=== PATIENT | female | born 1940 | race Caucasian/White ===

== ENCOUNTER 2016-08-20 09:24 | Inpatient (IN) | payer MEDICARE ==
[2016-08-20] VITALS (25 sets, daily range): BP systolic 55–129; BP diastolic 22–77
[~2016-08-20] VITALS: Ht 142.2 cm; Wt 83.9 kg
[~2016-08-20 09:24] MED LIST: ALEN70TA3 PO; ASPI-1159 PO; ATOR20TA65 PO; ATOR40TA70 PO; CHOL20004 PO; CLOP75TA33 PO; COR12 PO; ESCI10TA54 PO; HYDR-3927 PO; HYDR-523 PO; LOSA100T14 PO; OMEP20TA15 PO
[2016-08-20] MEDS ORDERED: SODIUM CHLORIDE 0.9% 1,000 ML IV ONE ×4 (09:40→14:19)
[2016-08-20] MEDS ORDERED: ONDANSETRON HCL 4MG/2ML VIAL IV STA (09:55)
[2016-08-20] MEDS ORDERED: MORPHINE SULFATE 4 MG/ML CPJ (NOT FOR IM USE) IV STA (09:55)
[2016-08-20] MEDS ORDERED: ASPIRIN 325MG TABLET PO ONE (10:00)
[2016-08-20 10:14] LABS: HEMATOCRIT. 39.3 % (36.0-48.0); HEMOGLOBIN. 13.1 g/dL (12.0-16.0); MEAN CORPUSCULAR HEMOGLOBIN 29.4 pg (28.0-32.0); MEAN CORPUSCULAR VOLUME 88.5 fL (81.0-99.0); MEAN PLATELET VOLUME 10.9 fl (7.4-10.4); PLATELET 108 x1000/uL (130-400); RED BLOOD CELL COUNT 4.44 mill/uL (4.2-5.4); RED CELL DISTRIBUTION WIDTH 14.5 % (11.6-14.6)
[2016-08-20 10:20] LABS: D-DIMER 3.49 mg/L FEU (<0.50); PROTHROMBIN TIME 10.7 sec
[2016-08-20 10:24] LABS: CARBON DIOXIDE 30 mEq/L (21-32); CHLORIDE 105 mEq/L (98-107); ETHANOL BLOOD < 10 mg/dL
[2016-08-20 10:33] LABS: PLATELET ESTIMATE SLIGHTLY DECREASED
[2016-08-20] MEDS ORDERED: LIDOCAINE HCL 2% JELLY 5ML MM ONE (11:15)
[2016-08-20 11:39] LABS: CLARITY URINE CLOUDY (CLEAR); COLOR URINE YELLOW (YELLOW); GLUCOSE URINE NEGATIVE (NEGATIVE); KETONES URINE TRACE (NEGATIVE); LEUKOCYTE ESTERASE URINE 3+ (NEGATIVE); NITRITE URINE POSITIVE (NEGATIVE); OCCULT BLOOD URINE 3+ (NEGATIVE); PH URINE 5.5 (4.5-8.0); PROTEIN URINE 2+ (NEGATIVE); SPECIFIC GRAVITY URINE 1.033 (1.005-1.030)
[2016-08-20 12:18] LABS: *AMPHETAMINES SCREEN URINE NEGATIVE (NEGATIVE); *BARBITURATES SCREEN URINE NEGATIVE (NEGATIVE); *BENZODIAZEPINES SCREEN URINE NEGATIVE (NEGATIVE); *COCAINE SCREEN URINE NEGATIVE (NEGATIVE); CANNABINOID URINE SCREEN NEGATIVE (NEGATIVE); METHADONE URINE SCREEN NEGATIVE (NEGATIVE); OPIATES URINE SCREEN NEGATIVE (NEGATIVE); PHENCYCLIDINE URINE SCREEN NEGATIVE (NEGATIVE)
[2016-08-20] MEDS ORDERED: PIPERACILLIN SODIUM/TAZOBACTAM 4.5 G in DEXT 5% WATER 100 ML IV SCH (12:30)
[2016-08-20] MEDS ORDERED: CEFTRIAXONE 2 G PREMIX 50 ML IV ONE (12:30)
[2016-08-20] MEDS ORDERED: VANCOMYCIN 1,250 MG in DEXT 5% WATER 250 ML IV SCH (12:30)
[2016-08-20] MEDS ORDERED: SODIUM CHLORIDE 0.9% 1,000 ML IV SCH (12:38)
[2016-08-20] MEDS ORDERED: NA PHOS,M-B/NA PHOS,DI-BA ENEMA 118ML PR PRN (13:15)
[2016-08-20] MEDS ORDERED: ONDANSETRON HCL 4MG/2ML VIAL IV PRN (13:15)
[2016-08-20] MEDS ORDERED: MAGNESIUM/ALUMINUM HYDROXIDE/SIMETHICONE 30ML UDC PO PRN (13:15)
[2016-08-20] MEDS ORDERED: HYDROMORPHONE HCL/PF 2MG/ML CPJ IV PRN (13:15)
[2016-08-20] MEDS ORDERED: CLONIDINE 0.1MG TABLET PO PRN (13:15)
[2016-08-20] MEDS ORDERED: DOCUSATE SODIUM 100MG CAPSULE PO PRN (13:15)
[2016-08-20] MEDS: ACETAMINOPHEN 325MG TABLET PO PRN (18:14)
[2016-08-20] MEDS ORDERED: LEVOFLOXACIN 500MG PREMIX 100 ML IV SCH (18:30)
[2016-08-20] MEDS ORDERED: DEXTROSE 50% WATER 50ML SYRINGE IV PRN (18:30)
[2016-08-20] MEDS: ENOXAPARIN 40MG/0.4ML SYR SUBCUT SCH (18:53)
[2016-08-20] MEDS ORDERED: SODIUM CHLORIDE 0.45% 1,000 ML IV SCH (19:00)
[2016-08-20] MEDS: BLOOD SUGAR DIAGNOSTIC STRIP TEST SCH (20:59)
[2016-08-20] MEDS: INSULIN LISPRO 100 UNITS/ML SUBCUT SCH (20:59)
[2016-08-20 21:07] LABS: CHLORIDE 111 mEq/L (98-107)
[2016-08-20 21:10] LABS: CARBON DIOXIDE 22 mEq/L (21-32)
[2016-08-20] MEDS: NOREPINEPHRINE 4 MG in DEXT 5% WATER 246 ML IV PRN (23:57)
[2016-08-21] VITALS (101 sets, daily range): BP systolic 55–158; BP diastolic 25–86
[2016-08-21] MEDS: IPRATROPIUM/ALBUTEROL 0.5-3(2.5)MG/3ML NEB INH PRN ×2 (04:34→13:32)
[2016-08-21] MEDS: HYDROCODONE/ACETAMINOPHEN 5/325MG TABLET PO PRN ×3 (04:43→20:37)
[2016-08-21] MEDS: BLOOD SUGAR DIAGNOSTIC STRIP TEST SCH ×4 (06:30→20:49)
[2016-08-21] MEDS: INSULIN LISPRO 100 UNITS/ML SUBCUT SCH ×4 (06:56→21:17)
[2016-08-21 07:36] LABS: BASOPHILS % 0.4 % (0.0-2.0); EOSINOPHILS % 0.4 % (0.0-5.0); HEMATOCRIT. 34.2 % (36.0-48.0); HEMOGLOBIN. 11.2 g/dL (12.0-16.0); LYMPHOCYTES % 12.3 % (20.0-50.0); MEAN CORPUSCULAR HEMOGLOBIN 28.7 pg (28.0-32.0); MEAN CORPUSCULAR VOLUME 88.1 fL (81.0-99.0); MEAN PLATELET VOLUME 11.2 fl (7.4-10.4); NEUTROPHILS % 80.9 % (40.0-76.0); PLATELET 115 x1000/uL (130-400); RED BLOOD CELL COUNT 3.88 mill/uL (4.2-5.4); RED CELL DISTRIBUTION WIDTH 14.8 % (11.6-14.6)
[2016-08-21 07:59] LABS: CARBON DIOXIDE 22 mEq/L (21-32); CHLORIDE 110 mEq/L (98-107); HDL CHOLESTEROL 46 mg/dL (40-59); LDL CHOLESTEROL 58 mg/dL (5-100); T4 FREE 1.15 ng/dL (0.76-1.46)
[2016-08-21] MEDS: ACETAMINOPHEN 325MG TABLET PO PRN (08:03)
[2016-08-21] MEDS: SODIUM CHLORIDE 0.45% 1,000 ML IV SCH ×2 (08:24→21:46)
[2016-08-21] MEDS ORDERED: OMEPRAZOLE 20MG CAPSULE EXTENDED RELEASE PO SCH (11:15)
[2016-08-21] MEDS: NOREPINEPHRINE 4 MG in DEXT 5% WATER 246 ML IV PRN (12:06)
[2016-08-21] MEDS: CLOPIDOGREL 75MG TABLET PO SCH (12:56)
[2016-08-21 16:03] LABS: CREATINE KINASE 236 IU/L (26-192); CREATINE KINASE MB FRACTION 3.3 ng/mL (0.5-3.6); TROPONIN I < 0.02 ng/mL (0.00-0.04)
[2016-08-21] MEDS: LEVOFLOXACIN 250MG PREMIX 50 ML IV SCH (17:56)
[2016-08-21] MEDS: ENOXAPARIN 40MG/0.4ML SYR SUBCUT SCH (18:06)
[2016-08-22] VITALS (68 sets, daily range): BP systolic 86–173; BP diastolic 41–106
[2016-08-22 00:06] LABS: CREATINE KINASE 244 IU/L (26-192); TROPONIN I < 0.02 ng/mL (0.00-0.04)
[2016-08-22] MEDS: IPRATROPIUM/ALBUTEROL 0.5-3(2.5)MG/3ML NEB INH PRN ×3 (00:26→10:45)
[2016-08-22] MEDS: HYDROCODONE/ACETAMINOPHEN 5/325MG TABLET PO PRN ×2 (04:00→07:14)
[2016-08-22] MEDS: GUAIFENESIN 200MG/10ML SUGAR FREE UDC PO PRN (04:00)
[2016-08-22 04:51] LABS: BASOPHILS % 0.5 % (0.0-2.0); HEMATOCRIT. 33.2 % (36.0-48.0); HEMOGLOBIN. 11.2 g/dL (12.0-16.0); LYMPHOCYTES % 14.7 % (20.0-50.0); MEAN CORPUSCULAR HEMOGLOBIN 29.7 pg (28.0-32.0); MEAN CORPUSCULAR VOLUME 88.4 fL (81.0-99.0); MEAN PLATELET VOLUME 10.7 fl (7.4-10.4); NEUTROPHILS % 71.8 % (40.0-76.0); PLATELET 80 x1000/uL (130-400); RED BLOOD CELL COUNT 3.76 mill/uL (4.2-5.4)
[2016-08-22 05:11] LABS: CARBON DIOXIDE 21 mEq/L (21-32); CHLORIDE 109 mEq/L (98-107); CREATINE KINASE 234 IU/L (26-192); CREATINE KINASE MB FRACTION 2.8 ng/mL (0.5-3.6); TROPONIN I < 0.02 ng/mL (0.00-0.04)
[2016-08-22] MEDS: BLOOD SUGAR DIAGNOSTIC STRIP TEST SCH ×4 (05:53→20:38)
[2016-08-22] MEDS: SODIUM CHLORIDE 0.45% 1,000 ML IV SCH ×2 (06:07→07:50)
[2016-08-22] MEDS: OMEPRAZOLE 20MG CAPSULE EXTENDED RELEASE PO SCH (06:07)
[2016-08-22] MEDS: INSULIN LISPRO 100 UNITS/ML SUBCUT SCH ×4 (06:08→20:37)
[2016-08-22] MEDS: CLOPIDOGREL 75MG TABLET PO SCH (08:13)
[2016-08-22] MEDS ORDERED: PHENAZOPYRIDINE HCL 200MG TABLET PO SCH (11:00)
[2016-08-22 11:23] LABS: BG BASE EXCESS -6.9 mmol/L (-2.0-2.0); BG CARBOXYHEMOGLOBIN 0.8 % (0.5-1.5); BG DEOXYHEMOGLOBIN 3.4 % (0.0-5.0); BG FRACTION INSPIRED OXYGEN 32; BG HCO3 ACT 19.2 mmol/L (22.0-26.0); BG METHEMOGLOBIN 0.3 % (0.0-1.5); BG OXYGEN SATURATION 96.6 % (92.0-98.5); BG OXYHEMOGLOBIN 95.5 % (94.0-97.0); BG PH 7.289 (7.350-7.450); BG PO2 93.2 mmHg (75.0-100.0); BG SAMPLE SITE RIGHT RADIAL; BG TOTAL HEMOGLOBIN 12.7 g/dL (12.0-18.0); BG VENT MODE NASAL CANNULA
[2016-08-22] MEDS: LORAZEPAM 2MG/ML CPJ IV PRN ×2 (12:04→18:26)
[2016-08-22] MEDS: SODIUM BICARBONATE 50 MEQ in SODIUM CHLORIDE 0.45% 1,000 ML IV SCH (13:19)
[2016-08-22] MEDS: LEVOFLOXACIN 250MG PREMIX 50 ML IV SCH (17:30)
[2016-08-22] MEDS: ENOXAPARIN 40MG/0.4ML SYR SUBCUT SCH (18:33)
[2016-08-22] MEDS: ACETAMINOPHEN 325MG TABLET PO PRN (20:26)
[2016-08-22] MEDS: MORPHINE SULFATE 4 MG/ML CPJ (NOT FOR IM USE) IV PRN ×2 (21:45→23:02)
[2016-08-23] VITALS (68 sets, daily range): BP systolic 86–181; BP diastolic 21–94
[2016-08-23] MEDS: SODIUM BICARBONATE 50 MEQ in SODIUM CHLORIDE 0.45% 1,000 ML IV SCH ×2 (00:48→08:24)
[2016-08-23] MEDS: LORAZEPAM 2MG/ML CPJ IV PRN (01:11)
[2016-08-23] MEDS: DIPHENHYDRAMINE 50MG/ML VIAL IV PRN (01:11)
[2016-08-23 05:20] LABS: BASOPHILS % 0.5 % (0.0-2.0); EOSINOPHILS % 2.3 % (0.0-5.0); HEMATOCRIT. 32.3 % (36.0-48.0); HEMOGLOBIN. 10.7 g/dL (12.0-16.0); MEAN CORPUSCULAR HEMOGLOBIN 29.5 pg (28.0-32.0); MEAN PLATELET VOLUME 10.9 fl (7.4-10.4); MONOCYTES % 12.8 % (2.0-8.0); NEUTROPHILS % 61.4 % (40.0-76.0); PLATELET 90 x1000/uL (130-400); RED BLOOD CELL COUNT 3.64 mill/uL (4.2-5.4); RED CELL DISTRIBUTION WIDTH 14.8 % (11.6-14.6)
[2016-08-23 05:33] LABS: CARBON DIOXIDE 25 mEq/L (21-32); CHLORIDE 108 mEq/L (98-107)
[2016-08-23] MEDS: OMEPRAZOLE 20MG CAPSULE EXTENDED RELEASE PO SCH (06:00)
[2016-08-23] MEDS: BLOOD SUGAR DIAGNOSTIC STRIP TEST SCH ×4 (06:00→21:00)
[2016-08-23] MEDS: INSULIN LISPRO 100 UNITS/ML SUBCUT SCH ×4 (06:00→21:00)
[2016-08-23] MEDS: IPRATROPIUM/ALBUTEROL 0.5-3(2.5)MG/3ML NEB INH PRN (07:57)
[2016-08-23] MEDS: CLOPIDOGREL 75MG TABLET PO SCH (08:11)
[2016-08-23 11:14] LABS: BG BASE EXCESS -0.8 mmol/L (-2.0-2.0); BG CARBOXYHEMOGLOBIN 0.1 % (0.5-1.5); BG DEOXYHEMOGLOBIN 5.1 % (0.0-5.0); BG FRACTION INSPIRED OXYGEN 21; BG HCO3 ACT 24.7 mmol/L (22.0-26.0); BG METHEMOGLOBIN 0.1 % (0.0-1.5); BG OXYGEN SATURATION 94.9 % (92.0-98.5); BG OXYHEMOGLOBIN 94.7 % (94.0-97.0); BG PH 7.367 (7.350-7.450); BG SAMPLE SITE RIGHT RADIAL; BG TOTAL HEMOGLOBIN 11.8 g/dL (12.0-18.0); BG VENT MODE ROOM AIR
[2016-08-23 13:26] LABS: VITAMIN B12 SERUM 848 pg/mL (211-911)
[2016-08-23 13:54] LABS: AMMONIA 40 uMol/L (<32)
[2016-08-23] MEDS: HYDROCODONE/ACETAMINOPHEN 5/325MG TABLET PO PRN (15:00)
[2016-08-23] MEDS: LEVOFLOXACIN 250MG PREMIX 50 ML IV SCH (18:13)
[2016-08-23] MEDS: ENOXAPARIN 40MG/0.4ML SYR SUBCUT SCH (18:21)
[2016-08-23] MEDS: ACETAMINOPHEN 325MG TABLET PO PRN (19:52)
[2016-08-24] VITALS (12 sets, daily range): BP systolic 113–148; BP diastolic 50–102
[2016-08-24] MEDS: IPRATROPIUM/ALBUTEROL 0.5-3(2.5)MG/3ML NEB INH PRN ×3 (00:18→10:22)
[2016-08-24] MEDS: GUAIFENESIN 200MG/10ML SUGAR FREE UDC PO PRN (01:56)
[2016-08-24] MEDS: OMEPRAZOLE 20MG CAPSULE EXTENDED RELEASE PO SCH (06:57)
[2016-08-24] MEDS: BLOOD SUGAR DIAGNOSTIC STRIP TEST SCH ×4 (07:54→20:55)
[2016-08-24] MEDS: INSULIN LISPRO 100 UNITS/ML SUBCUT SCH ×4 (08:07→21:31)
[2016-08-24] MEDS: CLOPIDOGREL 75MG TABLET PO SCH (08:07)
[2016-08-24 16:27] LABS: BASOPHILS % 0.6 % (0.0-2.0); EOSINOPHILS % 1.3 % (0.0-5.0); HEMATOCRIT. 31.6 % (36.0-48.0); HEMOGLOBIN. 10.7 g/dL (12.0-16.0); LYMPHOCYTES % 20.1 % (20.0-50.0); MEAN CORPUSCULAR HEMOGLOBIN 29.4 pg (28.0-32.0); MEAN CORPUSCULAR VOLUME 86.7 fL (81.0-99.0); MONOCYTES % 13.9 % (2.0-8.0); NEUTROPHILS % 64.1 % (40.0-76.0); PLATELET 114 x1000/uL (130-400); RED BLOOD CELL COUNT 3.65 mill/uL (4.2-5.4); RED CELL DISTRIBUTION WIDTH 14.7 % (11.6-14.6)
[2016-08-24 16:30] LABS: CHLORIDE 110 mEq/L (98-107)
[2016-08-24 16:32] LABS: CARBON DIOXIDE 28 mEq/L (21-32)
[2016-08-24] MEDS: LEVOFLOXACIN 250MG PREMIX 50 ML IV SCH (17:26)
[2016-08-24] MEDS: MORPHINE SULFATE 4 MG/ML CPJ (NOT FOR IM USE) IV PRN (18:06)
[2016-08-24] MEDS: ENOXAPARIN 40MG/0.4ML SYR SUBCUT SCH (18:09)
[2016-08-24] MEDS: LORAZEPAM 2MG/ML CPJ IV PRN (22:04)
[2016-08-25] VITALS (11 sets, daily range): BP systolic 120–160; BP diastolic 57–99
[2016-08-25] MEDS: MORPHINE SULFATE 4 MG/ML CPJ (NOT FOR IM USE) IV PRN (02:26)
[2016-08-25] MEDS: IPRATROPIUM/ALBUTEROL 0.5-3(2.5)MG/3ML NEB INH PRN ×2 (02:53→08:25)
[2016-08-25] MEDS: LORAZEPAM 2MG/ML CPJ IV PRN ×2 (04:20→08:40)
[2016-08-25 06:56] LABS: BASOPHILS % 0.4 % (0.0-2.0); EOSINOPHILS % 1.9 % (0.0-5.0); HEMATOCRIT. 34.5 % (36.0-48.0); HEMOGLOBIN. 11.4 g/dL (12.0-16.0); LYMPHOCYTES % 21.7 % (20.0-50.0); MEAN CORPUSCULAR HEMOGLOBIN 29.2 pg (28.0-32.0); MEAN CORPUSCULAR VOLUME 88.1 fL (81.0-99.0); MEAN PLATELET VOLUME 9.4 fl (7.4-10.4); MONOCYTES % 14.1 % (2.0-8.0); NEUTROPHILS % 61.9 % (40.0-76.0); PLATELET 137 x1000/uL (130-400); RED BLOOD CELL COUNT 3.91 mill/uL (4.2-5.4)
[2016-08-25] MEDS: BLOOD SUGAR DIAGNOSTIC STRIP TEST SCH ×4 (07:30→20:32)
[2016-08-25 07:32] LABS: CARBON DIOXIDE 30 mEq/L (21-32); CHLORIDE 107 mEq/L (98-107)
[2016-08-25] MEDS: CLOPIDOGREL 75MG TABLET PO SCH (08:51)
[2016-08-25] MEDS: FAMOTIDINE 20MG TABLET PO SCH (08:51)
[2016-08-25] MEDS: INSULIN LISPRO 100 UNITS/ML SUBCUT SCH ×4 (08:52→20:32)
[2016-08-25] MEDS: LEVOFLOXACIN 250MG PREMIX 50 ML IV SCH (18:50)
[2016-08-25] MEDS: ENOXAPARIN 40MG/0.4ML SYR SUBCUT SCH (18:51)
[2016-08-25] MEDS: DIPHENHYDRAMINE 50MG/ML VIAL IV PRN (19:32)
[2016-08-25] MEDS: ALPRAZOLAM 0.5 MG TABLET PO PRN (22:45)
[2016-08-26] VITALS (9 sets, daily range): BP systolic 90–157; BP diastolic 59–82
[2016-08-26] MEDS: IPRATROPIUM/ALBUTEROL 0.5-3(2.5)MG/3ML NEB INH PRN (01:22)
[2016-08-26] MEDS: MORPHINE SULFATE 4 MG/ML CPJ (NOT FOR IM USE) IV PRN (01:50)
[2016-08-26] MEDS: BLOOD SUGAR DIAGNOSTIC STRIP TEST SCH ×2 (07:30→12:00)
[2016-08-26] MEDS: ALPRAZOLAM 0.5 MG TABLET PO PRN (08:52)
[2016-08-26] MEDS: CLOPIDOGREL 75MG TABLET PO SCH (08:52)
[2016-08-26] MEDS: FAMOTIDINE 20MG TABLET PO SCH (08:52)
[2016-08-26] MEDS: INSULIN LISPRO 100 UNITS/ML SUBCUT SCH ×2 (09:03→12:04)
[2016-08-26] MEDS: DIPHENHYDRAMINE 50MG/ML VIAL IV PRN (09:19)
[2016-08-26] MEDS ORDERED: THIAMINE HCL 100 MG in SODIUM CHLORIDE 0.9% 49 ML IV NR (14:00)
[2016-08-26] MEDS ORDERED: THIAMINE HCL 100MG TABLET PO SCH (17:00)
== END 2016-08-26 15:15 | disposition home or self-care (01) | DRG 871 ==
LOC: ER 09:34 → 5EST 12:33 → EDBEDREQSVC 12:43 → EDBEDREQ 12:50 → ENRESERV 12:57 → CANRESERV 12:57 → CANBEDREQ 16:00 → ENRESERV 17:00 → MICUNO 08-21 01:18 → 5EST 08-23 17:45
PROVIDERS: ADMIT Internal Medicine; ATTEND Internal Medicine
PROC: 02HV33Z Insertion of Infusion Device into Superior Vena Cava, Percutaneous Approach (ICD-10-PCS; principal; 2016-08-21)
PROC: B548ZZA Ultrasonography of Superior Vena Cava, Guidance (ICD-10-PCS; 2016-08-21)
DX: A41.9 Sepsis, unspecified organism (principal); G93.41 Metabolic encephalopathy; R65.21 Severe sepsis with septic shock; E46 Unspecified protein-calorie malnutrition; N39.0 Urinary tract infection, site not specified; Z68.41 Body mass index [BMI] 40.0-44.9, adult; E87.2 Acidosis; I67.82 Cerebral ischemia; E78.00 Pure hypercholesterolemia, unspecified; E78.5 Hyperlipidemia, unspecified; E86.1 Hypovolemia; F32.9 Major depressive disorder, single episode, unspecified; G72.9 Myopathy, unspecified; D64.9 Anemia, unspecified; E66.9 Obesity, unspecified; R91.1 Solitary pulmonary nodule; E11.40 Type 2 diabetes mellitus with diabetic neuropathy, unspecified; F41.9 Anxiety disorder, unspecified; I10 Essential (primary) hypertension; I25.10 Atherosclerotic heart disease of native coronary artery without angina pectoris; I27.2 Other secondary pulmonary hypertension; N28.1 Cyst of kidney, acquired; Z79.82 Long term (current) use of aspirin; Z79.02 Long term (current) use of antithrombotics/antiplatelets; Z79.899 Other long term (current) drug therapy; Z90.710 Acquired absence of both cervix and uterus; Z90.49 Acquired absence of other specified parts of digestive tract
CPT/HCPCS: 36415; 36569; 36600; 51701; 70450; 70551; 71010; 71275; 76937; 80048; 80053; 80061; 80305; 81001; 82140; 82375; 82550; 82553; 82607; 82805; 82962; 83036; 83605; 83690; 83880; 84439; 84443; 84484; 85025; 85379; 85610; 87040; 87077; 87086; 87186; 93005; 93306; 94640; 96361; 96365; 96366; 96375; 97110; 97163; 97167; 97530; 99291; A6261; C1725; G0482; J1200; J1650; J1815; J1956; J2060; J2270; J2543; J3370; J3411; J3490; J7030; J7060; J7620; A4315

== ENCOUNTER 2020-03-21 11:43 | Inpatient (IN) | payer BC, MEDICARE ==
[~2020-03-21] VITALS: Ht 160 cm; Wt 75.0 kg
[~2020-03-21 11:43] MED LIST changes: -ASPI-1159 PO; +ASPI-1497 PO; +ESCI10TA PO; -ESCI10TA54 PO; -LOSA100T14 PO; +LOSA100T32 PO
[2020-03-21 12:42] LABS: HEMATOCRIT. 32.4 % (36.0-48.0); HEMOGLOBIN. 10.4 g/dL (12.0-16.0); MEAN CORPUSCULAR HEMOGLOBIN 25.1 pg (28.0-32.0); MEAN CORPUSCULAR VOLUME 78.8 fL (81.0-99.0); MEAN PLATELET VOLUME 9.4 fl (7.4-10.4); PLATELET 88 x1000/uL (130-400); RED BLOOD CELL COUNT 4.12 mill/uL (4.2-5.4); RED CELL DISTRIBUTION WIDTH 16.8 % (11.6-14.6)
[2020-03-21 12:46] LABS: CHLORIDE 106 mEq/L (98-107)
[2020-03-21 12:57] LABS: BG BASE EXCESS -0.4 mmol/L (-2.0-2.0); BG CARBOXYHEMOGLOBIN 0.7 % (0.5-1.5); BG DEOXYHEMOGLOBIN 1.1 % (0.0-5.0); BG FRACTION INSPIRED OXYGEN 36; BG HCO3 ACT 24.3 mmol/L (22.0-26.0); BG METHEMOGLOBIN 0.2 % (0.0-1.5); BG OXYGEN SATURATION 98.9 % (92.0-98.5); BG PH 7.401 (7.350-7.450); BG PO2 149.1 mmHg (75.0-100.0); BG SAMPLE SITE RIGHT RADIAL; BG TOTAL HEMOGLOBIN 10.7 g/dL (12.0-18.0); BG VENT MODE NASAL CANNULA
[2020-03-21 13:03] LABS: INR 1.1; PROTHROMBIN TIME 11.7 sec (9.6-11.0)
[2020-03-21 13:12] LABS: PLATELET ESTIMATE DECREASED
[2020-03-21 15:23] LABS: CLARITY URINE CLOUDY (CLEAR); COLOR URINE YELLOW (YELLOW); KETONES URINE NEGATIVE (NEGATIVE); LEUKOCYTE ESTERASE URINE 2+ (NEGATIVE); NITRITE URINE NEGATIVE (NEGATIVE); OCCULT BLOOD URINE 1+ (NEGATIVE); PROTEIN URINE 2+ (NEGATIVE); SPECIFIC GRAVITY URINE 1.015 (1.005-1.030); UROBILINOGEN URINE 0.2 E.U./dL (0.2-1.0)
[2020-03-21] MEDS ORDERED: CEFTRIAXONE 1 G PREMIX 50 ML IV ONE (16:00)
[2020-03-21] MEDS ORDERED: ACETAMINOPHEN 650MG SUPP PR PRN (19:15)
[2020-03-21] MEDS ORDERED: NA PHOS,M-B/NA PHOS,DI-BA ENEMA 118ML PR PRN (19:15)
[2020-03-21] MEDS ORDERED: CLONIDINE 0.1MG TABLET PO PRN (19:15)
[2020-03-21] MEDS ORDERED: ONDANSETRON HCL 4MG/2ML INJ IV PRN (19:15)
[2020-03-21] MEDS ORDERED: DOCUSATE SODIUM 100MG CAPSULE PO PRN (19:15)
[2020-03-21] MEDS ORDERED: DEXTROSE 50% WATER 50ML SYRINGE IV PRN (19:15)
[2020-03-21] MEDS ORDERED: GUAIFENESIN 200MG/10ML SUGAR FREE UDC PO PRN (19:15)
[2020-03-21] MEDS ORDERED: VANCOMYCIN 1 G PREMIX 200 ML IV SCH (19:15)
[2020-03-21] MEDS ORDERED: MAGNESIUM/ALUMINUM HYDROXIDE/SIMETHICONE 30ML UDC PO PRN (19:15)
[2020-03-21] MEDS ORDERED: DIPHENHYDRAMINE 50MG/ML VIAL IV PRN (19:15)
[2020-03-21] MEDS ORDERED: ALBUTEROL 6.7GM HFA INHALER ORI SCH (19:30)
[2020-03-21] MEDS: DEXAMETHASONE 10 MG/ML VIAL IV SCH (19:50)
[2020-03-21] MEDS: ACETAMINOPHEN 325MG TABLET PO PRN (19:50)
[2020-03-21] MEDS: FAMOTIDINE 20MG/2ML VIAL IV SCH (19:51)
[2020-03-21] MEDS ORDERED: PIPERACILLIN/TAZ 3.375G PREMIX 50 ML IV SCH (20:00)
[2020-03-21] MEDS: CEFEPIME 2,000 MG in DEXT 5% WATER 100 ML IV SCH (20:00)
[2020-03-21] MEDS: INSULIN LISPRO 100 UNITS/ML SUBCUT SCH (21:00)
[2020-03-21] MEDS ORDERED: VANCOMYCIN 1500MG in DEXTROSE 5% WATER 250ML IV NR (21:00)
[2020-03-21] MEDS: METRONIDAZOLE 500 MG PREMIX 100 ML IV SCH (21:25)
[2020-03-21] MEDS: BLOOD SUGAR DIAGNOSTIC STRIP TEST SCH (21:45)
[2020-03-22] MEDS: ACETAMINOPHEN 325MG TABLET PO PRN (01:14)
[2020-03-22] MEDS: METRONIDAZOLE 500 MG PREMIX 100 ML IV SCH (04:00)
[2020-03-22 05:51] LABS: HEMATOCRIT. 29.7 % (36.0-48.0); HEMOGLOBIN. 9.5 g/dL (12.0-16.0); MEAN CORPUSCULAR HEMOGLOBIN 25.4 pg (28.0-32.0); MEAN CORPUSCULAR VOLUME 78.8 fL (81.0-99.0); MEAN PLATELET VOLUME 10.6 fl (7.4-10.4); PLATELET 77 x1000/uL (130-400); RED BLOOD CELL COUNT 3.76 mill/uL (4.2-5.4)
[2020-03-22 05:55] LABS: CHLORIDE 106 mEq/L (98-107)
[2020-03-22 06:07] LABS: LDL CHOLESTEROL 35 mg/dL (5-100)
[2020-03-22 06:09] LABS: T4 FREE 1.36 ng/dL (0.76-1.46)
[2020-03-22 06:10] LABS: HDL CHOLESTEROL 30 mg/dL (40-59)
[2020-03-22] MEDS: BLOOD SUGAR DIAGNOSTIC STRIP TEST SCH ×2 (06:28→14:30)
[2020-03-22] MEDS: INSULIN LISPRO 100 UNITS/ML SUBCUT SCH (06:29)
[2020-03-22] MEDS ORDERED: FUROSEMIDE 40MG/4ML VIAL IV SCH (09:00)
[2020-03-22 09:30] VITALS: BP 152/65
[2020-03-22 09:38] LABS: PLATELET ESTIMATE DECREASED
[2020-03-22] MEDS: DEXAMETHASONE 10 MG/ML VIAL IV SCH (10:00)
[2020-03-22] MEDS: CEFEPIME 2,000 MG in DEXT 5% WATER 100 ML IV SCH (10:00)
[2020-03-22] MEDS: FAMOTIDINE 20MG/2ML VIAL IV SCH (10:00)
[2020-03-22] MEDS ORDERED: VANCOMYCIN 750 MG PREMIX 150 ML IV SCH (15:00)
[2020-03-22] MEDS ORDERED: LIDOCAINE HCL 1% 20ML VIAL (Pyxis) INJ ONE (15:19)
== END 2020-03-22 16:09 | disposition left against medical advice (07) | DRG 871 ==
LOC: ER 12:05 → MICUSO 15:55 → EDBEDREQ 15:58 → EDBEDREQSVC 15:58 → 6WST 03-22 14:40 → MICUSO 03-22 15:31
PROVIDERS: ADMIT Internal Medicine; ATTEND Internal Medicine
DX: A41.9 Sepsis, unspecified organism (principal); J18.9 Pneumonia, unspecified organism; I50.43 Acute on chronic combined systolic (congestive) and diastolic (congestive) heart failure; N39.0 Urinary tract infection, site not specified; D64.9 Anemia, unspecified; D69.6 Thrombocytopenia, unspecified; E11.9 Type 2 diabetes mellitus without complications; E78.00 Pure hypercholesterolemia, unspecified; E78.5 Hyperlipidemia, unspecified; I11.0 Hypertensive heart disease with heart failure; R06.03 Acute respiratory distress; Z20.822 Contact with and (suspected) exposure to COVID-19; Z88.8 Allergy status to other drugs, medicaments and biological substances; Z79.899 Other long term (current) drug therapy
CPT/HCPCS: 36415; 36600; 71045; 80053; 80061; 81003; 82375; 82728; 82805; 82962; 83036; 83880; 84145; 84439; 84443; 84484; 85025; 85379; 86141; 87077; 87186; 93005; 93970; 96365; 99291; C9803; J0692; J0696; J1100; J1815; J1940; J3370; J3490; J7060; U0003